=== PATIENT | male | born 1980 | race Caucasian/White ===

== ENCOUNTER → 2017-07-02 | Outpatient (CLI) | payer OTHER | LOC: M WUC 14:26 | DX: M25.561 Pain in right knee (principal) | CPT/HCPCS: 73564 ==

== ENCOUNTER → 2018-08-23 | Outpatient (REF) | payer OTHER ==
[2018-08-23 11:58] LABS: BASO # 0.1 10^3/uL (0.0-0.2); BASO % 0.7 % (0.0-1.0); EOS # 0.2 10^3/uL (0.0-0.50); EOS % 3.3 % (0.0-3.0); HEMATOCRIT 45.3 % (42.0-52.0); HEMOGLOBIN 15.6 g/dl (13.5-17.5); LYMPH # 2.2 10^3/uL (1.5-4.5); LYMPH % 30.2 % (24.0-44.0); MEAN CORPUSCULAR HEMOGLOBIN 29.2 pg (27.0-33.0); MEAN CORPUSCULAR HGB CONC 34.4 g/dl (32.0-36.5); MEAN CORPUSCULAR VOLUME 84.7 fl (80.0-96.0); MONO # 0.6 10^3/uL (0.0-0.8); MONO % 8.2 % (0.0-5.0); NEUTROPHILS # 4.2 10^3/uL (1.8-7.7); NEUTROPHILS % 57.2 % (36.0-66.0); PLATELET COUNT, AUTOMATED 256 10^3/uL (150-450); RED BLOOD COUNT 5.35 10^6/uL (4.30-6.10); WHITE BLOOD COUNT 7.4 10^3/uL (4.0-10.0)
[2018-08-23 12:11] LABS: ALBUMIN 4.1 GM/DL (3.2-5.2); ALT/SGPT 30 U/L (12-78); BILIRUBIN,TOTAL 0.6 MG/DL (0.2-1.0); BLOOD UREA NITROGEN 16 MG/DL (7-18); CALCIUM LEVEL 9.5 MG/DL (8.5-10.1); CARBON DIOXIDE LEVEL 30 MEQ/L (21-32); CHLORIDE LEVEL 104 MEQ/L (98-107); CHOLESTEROL LEVEL 264 MG/DL (<200); CHOLESTEROL RISK RATIO 4.125 (<5); GLOMERULAR FILTRATION RATE > 60.0 (>60); GLUCOSE, FASTING 90 MG/DL (70-100); HDL CHOLESTEROL 64 MG/DL (>40); LDL CHOLESTEROL 180 MG/DL (<100); NON-HDL-C 200 MG/DL; POTASSIUM SERUM 4.4 MEQ/L (3.5-5.1); SODIUM LEVEL 139 MEQ/L (136-145); TOTAL PROTEIN 7.7 GM/DL (6.4-8.2); TRIGLYCERIDES LEVEL 99 MG/DL (<150)
== END ==
LOC: M LABDRAW1 11:37
PROVIDERS: ATTEND Physician Assistant
DX: R03.0 Elevated blood-pressure reading, without diagnosis of hypertension (principal)

== ENCOUNTER → 2020-01-17 | Outpatient (CLI) | payer OTHER ==
--- NOTE | 2020-02-17 08:26 | REP ---
LEFT FOOT SERIES CLINICAL: Nontraumatic pain. TECHNIQUE: AP, lateral, and bilateral oblique views of the left foot. FINDINGS: Osseous structures, joint spaces, and surrounding soft tissues are essentially age appropriate. No acute fracture or dislocation. No overt osteoarthritic findings. No subcutaneous emphysema or foreign body. IMPRESSION: Essentially normal age appropriate left foot radiographs MTDD
== END ==
LOC: M WUC 11:38
PROVIDERS: ATTEND Physician Assistant
DX: M79.672 Pain in left foot (principal)

== ENCOUNTER → 2020-02-11 | Outpatient (CLI) | payer OTHER | LOC: M PLALAB 15:39 | PROVIDERS: ATTEND Physician Assistant | DX: M79.672 Pain in left foot (principal) ==

== ENCOUNTER → 2021-04-05 | Outpatient (CLI) | payer OTHER ==
[2021-04-05 13:50] LABS: BASO # 0.1 10^3/uL (0.0-0.2); BASO % 0.4 % (0.0-1.0); EOS # 0.3 10^3/uL (0.0-0.5); EOS % 2.4 % (0.0-3.0); HEMATOCRIT 45.1 % (42.0-52.0); HEMOGLOBIN 15.3 g/dl (13.5-17.5); LYMPH # 2.8 10^3/uL (1.5-5.0); LYMPH % 20.1 % (24.0-44.0); MEAN CORPUSCULAR HGB CONC 33.9 g/dl (32.0-36.5); MEAN CORPUSCULAR VOLUME 85.4 fl (80.0-96.0); MONO # 0.9 10^3/uL (0.0-0.8); MONO % 6.3 % (2.0-8.0); NEUTROPHILS # 9.8 10^3/uL (1.5-8.5); NEUTROPHILS % 70.3 % (36.0-66.0); PLATELET COUNT, AUTOMATED 322 10^3/uL (150-450); RED BLOOD COUNT 5.28 10^6/uL (4.30-6.10)
[2021-04-05 14:15] LABS: C REACTIVE PROTEIN QUANTITATIV 2.96 MG/DL (0.00-0.30); RHEUMATOID FACTOR QUANT < 10.0 IU/ML (<15.0)
[2021-04-05 14:33] LABS: ERYTHROCYTE SEDIMENTATION RATE 43 mm/hr (0-15)
[2021-04-06 14:09] LABS: ANTINUCLEAR ANTIBODIES DIRECT Negative (Negative); Lyme Disease IgG/IgM Antibodie <0.91 ISR (0.00-0.90); Lyme Disease IgM Ab Quantitati <0.80 index (0.00-0.79)
== END ==
LOC: M PLALAB 11:24
PROVIDERS: ATTEND Orthopaedic Surgery
DX: M25.562 Pain in left knee (principal)

== ENCOUNTER → 2021-08-26 | Outpatient (CLI) | payer OTHER | LOC: M WUC 10:40 | PROVIDERS: ATTEND Internal Medicine | DX: M19.071 Primary osteoarthritis, right ankle and foot (principal); M19.072 Primary osteoarthritis, left ankle and foot ==

== ENCOUNTER → 2021-10-12 | Outpatient (REF) | payer OTHER | LOC: M SFHCRHEU 15:32 | PROVIDERS: ATTEND Internal Medicine | DX: R70.0 Elevated erythrocyte sedimentation rate (principal); R79.82 Elevated C-reactive protein (CRP) ==

== ENCOUNTER → 2021-12-01 | Outpatient (REF) | payer OTHER ==
[2021-12-01 13:14] LABS: MAGNESIUM LEVEL 2.4 MG/DL (1.8-2.4)
[2021-12-01 13:45] LABS: TOTAL 25(OH) VITAMIN D 20.8 NG/ML (30.0-100.0)
== END ==
LOC: M SFHCRHEU 11:17
PROVIDERS: ATTEND Internal Medicine
DX: M25.50 Pain in unspecified joint (principal)

== ENCOUNTER → 2022-04-04 | Outpatient (REF) | payer OTHER ==
[2022-04-04 21:01] LABS: C REACTIVE PROTEIN QUANTITATIV 0.5 MG/DL (<1.0); TOTAL 25(OH) VITAMIN D 26.9 NG/ML (20.0-100.0)
== END ==
LOC: M SFHCRHEU 11:39
PROVIDERS: ATTEND Internal Medicine
DX: R79.82 Elevated C-reactive protein (CRP) (principal); R70.0 Elevated erythrocyte sedimentation rate; E55.9 Vitamin D deficiency, unspecified

== ENCOUNTER → 2022-10-06 | Outpatient (REF) | payer OTHER | LOC: M SFHCRHEU 12:38 | PROVIDERS: ATTEND Internal Medicine | DX: E55.9 Vitamin D deficiency, unspecified (principal); R70.0 Elevated erythrocyte sedimentation rate ==

== ENCOUNTER → 2023-02-26 | Outpatient (CLI) | payer OTHER | LOC: M RAD 13:53 | PROVIDERS: ATTEND Internal Medicine | DX: M79.89 Other specified soft tissue disorders (principal) ==

== ENCOUNTER → 2023-09-21 | Outpatient (CLI) | payer OTHER ==
[2023-09-21 13:18] LABS: URIC ACID 9.6 MG/DL (3.7-9.2)
[2023-09-21 13:21] LABS: BLOOD UREA NITROGEN 16 MG/DL (9-23); CALCIUM LEVEL 9.4 MG/DL (8.5-10.1); CARBON DIOXIDE LEVEL 29 MMOL/L (20-31); CHLORIDE LEVEL 103 MMOL/L (98-107); CREATININE FOR GFR 1.06 MG/DL (0.70-1.30); GLOMERULAR FILTRATION RATE > 60.0 (>60); GLUCOSE, FASTING 65 MG/DL (60-100); POTASSIUM SERUM 4.1 MMOL/L (3.5-5.1); SODIUM LEVEL 140 MMOL/L (136-145)
== END ==
LOC: M PLALAB 10:11
PROVIDERS: ATTEND Internal Medicine
DX: M10.9 Gout, unspecified (principal)

== ENCOUNTER → 2024-02-13 | Outpatient (CLI) | payer OTHER ==
[2024-02-13 18:36] LABS: URIC ACID 7.7 MG/DL (3.7-9.2)
[2024-02-13 18:38] LABS: C REACTIVE PROTEIN QUANTITATIV < 0.40 MG/DL (<1.0)
[2024-02-13 18:40] LABS: BLOOD UREA NITROGEN 18 MG/DL (9-23); CALCIUM LEVEL 9.8 MG/DL (8.5-10.1); CARBON DIOXIDE LEVEL 29 MMOL/L (20-31); CHLORIDE LEVEL 106 MMOL/L (98-107); CREATININE FOR GFR 1.18 MG/DL (0.70-1.30); GLOMERULAR FILTRATION RATE > 60.0 (>60); GLUCOSE, FASTING 90 MG/DL (60-100); POTASSIUM SERUM 4.7 MMOL/L (3.5-5.1); SODIUM LEVEL 139 MMOL/L (136-145)
[2024-02-13 18:42] LABS: TOTAL 25(OH) VITAMIN D 23.2 NG/ML (20.0-100.0)
== END ==
LOC: M PLALAB 14:46
PROVIDERS: ATTEND Internal Medicine
DX: M10.00 Idiopathic gout, unspecified site (principal)

== ENCOUNTER → 2024-09-25 | Outpatient (REF) | payer OTHER | LOC: M SFHCRHEU 14:26 | PROVIDERS: ATTEND Internal Medicine | DX: M10.00 Idiopathic gout, unspecified site (principal); E55.9 Vitamin D deficiency, unspecified ==

== ENCOUNTER → 2024-09-26 | Outpatient (CLI) | payer OTHER ==
[2024-09-26 11:50] LABS: URIC ACID 7.8 MG/DL (3.7-9.2)
[2024-09-26 11:53] LABS: BLOOD UREA NITROGEN 20 MG/DL (9-23); C REACTIVE PROTEIN QUANTITATIV < 0.50 MG/DL (<1.0); CALCIUM LEVEL 9.6 MG/DL (8.5-10.1); CARBON DIOXIDE LEVEL 30 MMOL/L (20-31); CHLORIDE LEVEL 102 MMOL/L (98-107); CREATININE FOR GFR 0.84 MG/DL (0.70-1.30); GLOMERULAR FILTRATION RATE > 90.0 (>60); GLUCOSE, FASTING 104 MG/DL (60-100); POTASSIUM SERUM 4.3 MMOL/L (3.5-5.1); SODIUM LEVEL 141 MMOL/L (136-145)
[2024-09-26 11:55] LABS: TOTAL 25(OH) VITAMIN D 28.2 NG/ML (20.0-100.0)
== END ==
LOC: M PLALAB 08:21
PROVIDERS: ATTEND Internal Medicine
DX: M10.00 Idiopathic gout, unspecified site (principal); E55.9 Vitamin D deficiency, unspecified

== ENCOUNTER → 2025-02-23 | Outpatient (CLI) | payer OTHER ==
[~2025-02-23] MED LIST: ALLO200T PO
[2025-02-23 10:43] LABS: BASO # 0.0 10^3/uL (0.0-0.2); BASO % 0.7 % (0.0-1.0); EOS # 0.1 10^3/uL (0.0-0.5); EOS % 1.2 % (0.0-3.0); LYMPH # 1.0 10^3/uL (1.5-5.0); LYMPH % 16.5 % (24.0-44.0); MONO # 0.5 10^3/uL (0.0-0.8); MONO % 8.5 % (2.0-8.0); NEUTROPHILS # 4.3 10^3/uL (1.5-8.5); NEUTROPHILS % 72.8 % (36.0-66.0)
[2025-02-23 11:16] LABS: ALT/SGPT 34 U/L (7.0-40); AST/SGOT 41 U/L (<34); CALCIUM LEVEL 9.6 MG/DL (8.5-10.1); CARBON DIOXIDE LEVEL 24 MMOL/L (20-31); CHLORIDE LEVEL 105 MMOL/L (98-107); CHOLESTEROL LEVEL 256 MG/DL (<200); CHOLESTEROL RISK RATIO 4.48 (<5); CREATININE FOR GFR 0.78 MG/DL (0.70-1.30); GLOMERULAR FILTRATION RATE > 90.0 (>60); LDL CHOLESTEROL 176.9 MG/DL (<100); NON-HDL-C 198.9 MG/DL; POTASSIUM SERUM 5.1 MMOL/L (3.5-5.1); PSA SCREENING 0.57 NG/ML (< 4.00); SODIUM LEVEL 141 MMOL/L (136-145); TRIGLYCERIDES LEVEL 110 MG/DL (<150)
== END ==
LOC: M PLALAB 08:43
PROVIDERS: ATTEND Nurse Practitioner Family
DX: Z00.00 Encounter for general adult medical examination without abnormal findings (principal); E78.2 Mixed hyperlipidemia; Z80.42 Family history of malignant neoplasm of prostate
CPT/HCPCS: 36415; 80053; 80061; 85025; G0103